=== PATIENT | male | born 1975 | race Caucasian/White ===

== ENCOUNTER 2017-08-16 14:16 | Emergency (ER) | payer SELFPAY ==
[~2017-08-16] VITALS: Ht 175.3 cm; Wt 106.6 kg
[2017-08-16] MEDS ORDERED: LIDO:MAALOX:DONNATAL 1:1:1 15 ML SINGLE DOSE SWSW ONE (15:30)
--- NOTE | 2017-08-16 15:30 | PHYS DOC ---
Past Medical History Past Medical History: Anxiety, GERD, Hypertension, Kidney Stone, Other Additional Past Medical Histor: PALPITATIONS Past Surgical History: Cholecystectomy, Tonsillectomy, Other Additional Past Surgical Histo: NASAL SURGERY AND HEART CATH, NESSON Alcohol Use: Occasionally Drug Use: None Adult General Chief Complaint Chief Complaint: ABDOMINAL PAIN HPI HPI Patient is a 42 year old male presents to the emergency department with a 12 hour history of epigastric discomfort. Patient states the pain began intermittently in the night and has gotten progressively worse as the day has progressed. He states his last meal was vegetables and rice. Patient denies fever, chest pain, nausea, vomiting, diarrhea. He describes the pain to be cramping in nature. Review of Systems Review of Systems Constitutional: Denies fever or chills [] Eyes: Denies change in visual acuity, redness, or eye pain [] HENT: Denies nasal congestion or sore throat [] Respiratory: Denies cough or shortness of breath [] Cardiovascular: No additional information not addressed in HPI [] GI: Epigastric pain, denies nausea, vomiting, diarrhea. : Denies dysuria or hematuria [] Musculoskeletal: Denies back pain or joint pain [] Integument: Denies rash or skin lesions [] Neurologic: Denies headache, focal weakness or sensory changes [] Endocrine: Denies polyuria or polydipsia [] Current Medications Current Medications Current Medications Medications (Trade) Dose Ordered Sig/[facility] Start Time Stop Time Status Last Admin Dose Admin Fentanyl Citrate (Fentanyl 2ml Vial) 50 mcg 1X ONCE 08/16/17 17:30 08/16/17 17:31 DC 08/16/17 17:38 50 MCG Info (Do NOT chart on this entry -- for MONITORING) 1 each PRN DAILY PRN 08/16/17 16:00 08/18/17 15:59 Iohexol (Omnipaque 300 Mg/ml) 75 ml STK-MED ONCE 08/16/17 16:34 08/16/17 16:35 DC Multi-Ingredient Mouthwash/Gargle (Gi Cocktail Single Dose) 15 ml 1X ONCE 08/16/17 15:30 08/16/17 16:44 DC 08/16/17 15:21 15 ML Ondansetron HCl (Zofran) 4 mg 1X ONCE 08/16/17 15:45 9/21/17 16:44 DC 08/16/17 15:59 4 MG Sodium Chloride 1,000 ml @ 1,000 mls/hr 1X ONCE 08/16/17 16:45 08/16/17 17:44 DC 08/16/17 16:45 1,000 MLS/HR Allergies Allergies Allergies Coded Allergies Type Severity Reaction Last Updated Verified sulfamethoxazole Allergy Unknown 11/25/14 Yes trimethoprim Allergy Unknown 11/25/14 Yes vancomycin Allergy Unknown 11/25/14 Yes Physical Exam Physical Exam Constitutional: Well developed, well nourished, no acute distress, non-toxic appearance. [] HENT: Normocephalic, atraumatic, bilateral external ears normal, oropharynx moist, no oral exudates, nose normal. [] Eyes: PERRLA, EOMI, conjunctiva normal, no discharge. [] Neck: Normal range of motion, no tenderness, supple, no stridor. [] Cardiovascular:Heart rate regular rhythm, no murmur [] Lungs & Thorax: Bilateral breath sounds clear to auscultation [] Abdomen: Bowel sounds normal, soft, mild epigastric tenderness to palpate Skin: Warm, dry, no erythema, no rash. [] Back: No tenderness, no CVA tenderness. [] Extremities: No tenderness, no cyanosis, no clubbing, ROM intact, no edema. [] Neurologic: Alert and oriented X 3, normal motor function, normal sensory function, no focal deficits noted. [] Psychologic: Affect normal, judgement normal, mood normal. [] Current Patient Data Vital Signs Vital Signs Date Time Temp Pulse Resp B/P (MAP) Pulse Ox O2 Delivery O2 Flow Rate FiO2 08/16/17 17:38 32 96 Room Air 08/16/17 15:00 97.6 77 119/84 (96) 97.6 Lab Values Laboratory Tests Test 08/16/17 15:12 08/16/17 17:39 White Blood Count 14.9 x10^3/uL (4.0-11.0) H Red Blood Count 5.90 x10^6/uL (4.30-5.70) H Hemoglobin 17.7 g/dL (13.0-17.5) H Hematocrit 50.8 % (39.0-53.0) Mean Corpuscular Volume 86 fL (79-100) Mean Corpuscular Hemoglobin 30 pg (25-35) Mean Corpuscular Hemoglobin Concent 35 g/dL (31-37) Red Cell Distribution Width 12.8 % (11.5-14.5) Platelet Count 302 x10^3/uL (140-400) Neutrophils (%) (Auto) 83 % (31-73) H Lymphocytes (%) (Auto) 11 % (24-48) L Monocytes (%) (Auto) 4 % (0-9) Eosinophils (%) (Auto) 1 % (0-3) Basophils (%) (Auto) 0 % (0-3) Neutrophils # (Auto) 12.4 x10^3uL (1.8-7.7) H Lymphocytes # (Auto) 1.7 x10^3/uL (1.0-4.8) Monocytes # (Auto) 0.6 x10^3/uL (0.0-1.1) Eosinophils # (Auto) 0.1 x10^3/uL (0.0-0.7) Basophils # (Auto) 0.0 x10^3/uL (0.0-0.2) Sodium Level 138 mmol/L (136-145) Potassium Level 5.0 mmol/L (3.5-5.1) Chloride Level 100 mmol/L (98-107) Carbon Dioxide Level 30 mmol/L (21-32) Anion Gap 8 (6-14) Blood Urea Nitrogen 20 mg/dL (8-26) Creatinine 0.9 mg/dL (0.7-1.3) Estimated GFR (Cockcroft-Gault) 92.5 BUN/Creatinine Ratio 22 (6-20) H Glucose Level 131 mg/dL (70-99) H Calcium Level 10.1 mg/dL (8.5-10.1) Total Bilirubin 1.6 mg/dL (0.2-1.0) H Aspartate Amino Transferase (AST) 24 U/L (15-37) Alanine Aminotransferase (ALT) 36 U/L (16-63) Alkaline Phosphatase 98 U/L (46-116) Total Protein 9.3 g/dL (6.4-8.2) H Albumin 4.8 g/dL (3.4-5.0) Albumin/Globulin Ratio 1.1 (1.0-1.7) Amylase Level 68 U/L (25-115) Lipase 159 U/L (73-393) Urine Collection Type Unknown Urine Color Yellow Urine Clarity Clear Urine pH 5.5 Urine Specific [place] >=1.030 Urine Protein Negative mg/dL (NEG-TRACE) Urine Glucose (UA) Negative mg/dL (NEG) Urine Ketones (Stick) Trace mg/dL (NEG) Urine Blood Negative (NEG) Urine Nitrite Negative (NEG) Urine Bilirubin Negative (NEG) Urine Urobilinogen Dipstick 0.2 mg/dL (0.2 mg/dL) Urine Leukocyte Esterase Negative (NEG) Urine RBC Occ /HPF (0-2) Urine WBC Occ /HPF (0-4) Urine Squamous Epithelial Cells None /LPF Urine Bacteria 0 /HPF (0-FEW) Urine Mucus Slight /LPF Laboratory Tests 08/16/17 15:12 Laboratory Tests 08/16/17 15:12 EKG EKG [] Radiology/Procedures Radiology/Procedures [][facility] [address] [place] [address] IMAGING REPORT Signed PATIENT: KATARINA MEDRANO ACCOUNT: [id number] : 1975 LOCATION: ER AGE: 42 SEX: M EXAM STATUS: REG ER ORD. PHYSICIAN: SKYLER SPANN APRN REASON: pain/ UPPER ABD PAIN X 1 DAY PROCEDURE: CT ABD PELV W/ IV CONTRST ONLY CT of the abdomen and pelvis with contrast, 08/16/2017: History: Upper abdominal pain Multidetector CT imaging was performed following an IV bolus injection of iodinated contrast material. No oral contrast material was administered for this study. The gallbladder is surgically absent. No hepatic abnormality is seen. The pancreas is unremarkable. The spleen is of normal size. There is mild bilateral renal cortical scarring. The kidneys show no evidence of obstruction. The aorta is unremarkable. There are surgical clips near the GE junction level. The GE junction is distorted in a pattern suggesting a prior fundoplication. Alternatively this may represent a small hiatal hernia. The stomach is otherwise unremarkable. The proximal and mid small bowel loops are mildly dilated. There is a transitional zone in the right lower quadrant. The distal small bowel loops are of normal caliber. No obstructing mass is seen. There are scattered diverticula in the colon. The colon contains gas and stool without distention. No free air or free fluid is evident in the abdomen or pelvis. IMPRESSION: 1. Partial distal small bowel obstruction. 2. Colonic diverticulosis. PQRS Compliance Statement: One or more of the following individualized dose reduction techniques were utilized for this examination: 1. Automated exposure control 2. Adjustment of the mA and/or kV according to patient size 3. Use of iterative reconstruction technique DICTATED and SIGNED BY: MARILYNN WELCH MD DATE: 08/16/17 0392 CC: NON,STAFF; SKYLER SPANN APRN; INES TOLEDO DO ~ Course & Med Decision Making Course & Med Decision Making Pertinent Labs and Imaging studies reviewed. (See chart for details) [reviewed lab and CT abdomen with patient and family. I offered him admission and he and his declined at this time. They prefer to manage at home with pain medications and clear liquid. Patient is resting comfortably and feels better, is alert and in no distress. Repeat examination is unremarkable and benign; in particular there is no discomfort at McBurney's point. The history, exam, diagnostic testing and current condition do not suggest acute appendicitis, bowel perforation or major GI bleed. He does have a partial small bowel instruction was offered admission, he has both declined stating they prefer to manage at home. The patient's pain is not uncontrollable he does not have intractable vomiting. He is stable and appropriate for discharge at his request. Patient will prefer further outpatient evaluation with his primary care provider tomorrow. He was advised to return to the emergency Department for new symptoms or concerns or worsening of current condition to include vomiting, fever, worsening of pain. Patient and his are in agreement with this plan and verbalized understanding. Again, patient is was at offered admission and was discussed in detail the benefits of admission he and his continued to decline admission Dragon Disclaimer Dragon Disclaimer This electronic medical record was generated, in whole or in part, using a voice recognition dictation system. Departure Departure Impression: Primary Impression: Partial small bowel obstruction Disposition: 01 HOME, SELF-CARE Condition: STABLE Referrals: INES TOLEDO DO (PCP) Patient Instructions: Clear Liquid Diet, Small Bowel Obstruction Scripts Ondansetron (ZOFRAN ODT) 4 Mg Tab.rapdis 1 TAB SL Q8HRS Y for NAUSEA, #15 TAB Prov: SKYLER SPANN APRN 08/16/17 Acetaminophen with Codeine (Acetamin-Codein 300-30 mg/12.5) 12.5 Ml Solution 12.5 ML PO Q4HRS Y for PAIN, #240 ML Prov: SKYLER SPANN APRN 08/16/17 SKYLER SPANN APRN Aug 16, 2017 15:30
[2017-08-16 15:44] LABS: BASO % 0 % (0-3); EOS % 1 % (0-3); HEMATOCRIT 50.8 % (39.0-53.0); HEMOGLOBIN 17.7 g/dL (13.0-17.5); LYMPH # 1.7 x10^3/uL (1.0-4.8); LYMPH % 11 % (24-48); MEAN CORPUSCULAR HEMOGLOBIN 30 pg (25-35); MEAN CORPUSCULAR HGB CONC 35 g/dL (31-37); MEAN CORPUSCULAR VOLUME 86 fL (79-100); MONO % 4 % (0-9); NEUT % 83 % (31-73); PLATELET COUNT 302 x10^3/uL (140-400); RED CELL DISTRIBUTION WIDTH 12.8 % (11.5-14.5); WHITE BLOOD COUNT 14.9 x10^3/uL (4.0-11.0)
[2017-08-16] MEDS ORDERED: fentaNYL PF VIAL 100 MCG/2 ML VIAL IV ONE ×2 (15:45→17:30)
[2017-08-16] MEDS ORDERED: ONDANSETRON PF 4 MG/2 ML VIAL. IV ONE (15:45)
[2017-08-16] MEDS ORDERED: IOHEXOL 300 MG/ML 75 ML VIAL IV ONE (15:45)
[2017-08-16 15:50] LABS: CALCIUM 10.1 mg/dL (8.5-10.1); CREATININE 0.9 mg/dL (0.7-1.3); GFR 92.5
[2017-08-16 15:55] LABS: ALBUMIN 4.8 g/dL (3.4-5.0); ALBUMIN/GLOBULIN RATIO 1.1 (1.0-1.7); TOTAL BILIRUBIN 1.6 mg/dL (0.2-1.0); TOTAL PROTEIN 9.3 g/dL (6.4-8.2)
[2017-08-16] MEDS ORDERED: CONTRAST GIVEN MC PRN (16:00)
[2017-08-16 16:11] VITALS: BP 118/79
[2017-08-16] MEDS ORDERED: IOHEXOL 300 MG/ML 75 ML VIAL ONE (16:34)
[2017-08-16] MEDS ORDERED: IV NORMAL SALINE 1000ML BAG 1,000 ML IV ONE (16:45)
--- NOTE | 2017-08-16 16:55 | RAD ---
CT of the abdomen and pelvis with contrast, 08/16/2017: History: Upper abdominal pain Multidetector CT imaging was performed following an IV bolus injection of iodinated contrast material. No oral contrast material was administered for this study. The gallbladder is surgically absent. No hepatic abnormality is seen. The pancreas is unremarkable. The spleen is of normal size. There is mild bilateral renal cortical scarring. The kidneys show no evidence of obstruction. The aorta is unremarkable. There are surgical clips near the GE junction level. The GE junction is distorted in a pattern suggesting a prior fundoplication. Alternatively this may represent a small hiatal hernia. The stomach is otherwise unremarkable. The proximal and mid small bowel loops are mildly dilated. There is a transitional zone in the right lower quadrant. The distal small bowel loops are of normal caliber. No obstructing mass is seen. There are scattered diverticula in the colon. The colon contains gas and stool without distention. No free air or free fluid is evident in the abdomen or pelvis. IMPRESSION: 1. Partial distal small bowel obstruction. 2. Colonic diverticulosis. PQRS Compliance Statement: One or more of the following individualized dose reduction techniques were utilized for this examination: 1. Automated exposure control 2. Adjustment of the mA and/or kV according to patient size 3. Use of iterative reconstruction technique
[2017-08-16] MEDS ORDERED: ONDA4TAB10 SL (17:19)
[2017-08-16] MEDS ORDERED: ACET12.53 PO (17:19)
[2017-08-16 17:45] LABS: BILIRUBIN,URINE NEGATIVE (NEG); GLUCOSE,URINE NEGATIVE (NEG); NITRITE,URINE NEGATIVE (NEG); PH,URINE 5.5; PROTEIN,URINE NEGATIVE (NEG-TRACE); UROBILINOGEN,URINE 0.2 mg/dL (0.2 mg/dL)
[2017-08-16 17:52] LABS: BACTERIA,URINE 0 /HPF (0-FEW); RBC,URINE OCC /HPF (0-2); WBC,URINE OCC /HPF (0-4)
== END 2017-08-16 18:22 | disposition home or self-care (01) ==
LOC: ER 14:16
DX: K56.60 Unspecified intestinal obstruction (principal); I10 Essential (primary) hypertension; K21.9 Gastro-esophageal reflux disease without esophagitis; Z88.2 Allergy status to sulfonamides; Z88.1 Allergy status to other antibiotic agents; Z88.8 Allergy status to other drugs, medicaments and biological substances
CPT/HCPCS: 36415; 74177; 80053; 81001; 82150; 83690; 85025; 96361; 96374; 96375; 96376; 99285; J2405; J3010; J7030; Q9967